=== PATIENT | female | born 1960 | race Caucasian/White ===

== ENCOUNTER 2020-01-27 01:43 | Inpatient (IN) | payer MEDICAID ==
[~2020-01-27] VITALS: Ht 152.4 cm; Wt 61.0 kg
[~2020-01-27 01:43] MED LIST: ALBU18HF2 IH; CALCIUM/VIT D PO; FLUT1AER PO; SPIIN IH
[2020-01-27] MEDS ORDERED: methylPREDNISolone sod succ 125mg/2ml vial IV ONE (01:50)
[2020-01-27] MEDS ORDERED: albuterol 2.5 MG/3 ML nebule CONTNEB PRN (01:50)
[2020-01-27] MEDS ORDERED: ondansetron/PF 4mg/2ml inj IV ONE (02:15)
[2020-01-27 02:26] LABS: BASOPHILS # (AUTO) 0.1 X10'3 (0-0.2); BASOPHILS % (AUTO) 0.5 % (0-1); EOSINOPHILS # (AUTO) 0.1 X10'3 (0-0.9); EOSINOPHILS % (AUTO) 0.8 % (0-6); HEMATOCRIT 38.6 % (35.0-45.0); HEMOGLOBIN 12.8 g/dl (12.0-16.0); LYMPHOCYTES # (AUTO) 2.7 X10'3 (1.1-4.8); LYMPHOCYTES % (AUTO) 21.6 % (21-51); MEAN CORPUSCULAR HEMOGLOBIN 29.5 PG (27.0-31.0); MEAN CORPUSCULAR HGB CONC 33.2 g/dL (33.0-36.5); MEAN CORPUSCULAR VOLUME 89.1 FL (78-98); MONOCYTES # (AUTO) 0.5 X10'3 (0-0.9); MONOCYTES % (AUTO) 4.4 % (2-12); NEUTROPHILS % (AUTO) 72.7 % (42-75); PLATELET COUNT 258 X10'3 (140-440); RED BLOOD COUNT 4.34 X10'6 (4.20-5.60); RED CELL DISTRIBUTION WIDTH 14.5 % (11.5-14.5); WHITE BLOOD COUNT 12.4 X10'3 (4.5-11.0)
[2020-01-27 02:34] LABS: PARTIAL THROMBOPLASTIN TIME 24 SECONDS (22-32)
[2020-01-27 02:42] LABS: ALANINE AMINOTRANSFERASE 39 U/L (12-78); ALBUMIN 3.9 G/DL (3.4-5.0); ALBUMIN/GLOBULIN RATIO 0.9 (1.1-1.5); ALKALINE PHOSPHATASE 71 IU/L (46-116); ANION GAP 5 (8-16); ASPARTATE AMINO TRANSFERASE 24 U/L (10-37); BILIRUBIN,TOTAL 0.3 MG/DL (0.1-1.0); BLOOD UREA NITROGEN 20 MG/DL (7-18); BUN/CREATININE RATIO 19.6 (6.6-38.0); CALCIUM 9.6 MG/DL (8.5-10.1); CHLORIDE 103 MMOL/L (99-107); CREATININE 1.02 MG/DL (0.40-0.90); GLUCOSE 130 MG/DL (70-104); POTASSIUM 3.4 MMOL/L (3.5-5.1); SODIUM 140 MMOL/L (135-145); TOTAL CARBON DIOXIDE 32.2 MMOL/L (24-32); TOTAL PROTEIN 8.2 G/DL (6.4-8.2); eGFR 55 ML/MIN
[2020-01-27] MEDS ORDERED: CefTRIAXone/D5W-Rocephin 1gm 50 ML IV ONE (02:50)
[2020-01-27] MEDS ORDERED: azithromycin/NS 500mg/250ml 250 ML IV ONE (02:50)
[2020-01-27 02:55] LABS: C-REACTIVE PROTEIN 0.17 MG/DL (0.0-0.5); LACTATE DEHYDROGENASE 187 U/L (81-234)
[2020-01-27 03:01] LABS: ABG BASE EXCESS 0.9 mmol/L (-2.0-2.0); ABG HCO3 26.6 mmol/L (22.0-26.0); ABG OXYGEN SATURATION 94.9 % (94-97); ABG PCO2 (T) 46.6 mmHg (32.0-45.0); ABG PO2 (T) 76.6 mmHg (75.0-100.0); ALLEN'S TEST POSITIVE; FCOHb 0.8 % (0.0-3.9); FMetHb 0.3 % (0.0-1.5); FO2Hb 93.9 % (94-97); TOTAL HEMOGLOBIN 13.2 G/dl (12.0-16.0)
[2020-01-27 03:23] LABS: FERRITIN 76 NG/ML (8-252)
[2020-01-27] MEDS ORDERED: ROSU20TA31 PO (03:23)
[2020-01-27] MEDS ORDERED: FLUT1BLS4 INH (03:23)
[2020-01-27] MEDS ORDERED: potassium CL 10mEq/100ml bag 100 ML IV PRN ×2 (04:10)
[2020-01-27] MEDS ORDERED: magnesium hydroxide 30ml (MOM) UD suspension PO PRN (04:10)
[2020-01-27] MEDS ORDERED: acetaminophen 325mg tablet PO PRN (04:10)
[2020-01-27] MEDS ORDERED: ondansetron/PF 4mg/2ml inj IV PRN (04:10)
[2020-01-27] MEDS ORDERED: mag hydrox/Alum hydrox/simeth 30ml oral suspension PO PRN (04:10)
[2020-01-27] MEDS ORDERED: potassium Cl 20 mEq SR tablet PO PRN (04:10)
[2020-01-27] MEDS ORDERED: LORazepam 2 mg/ml vial IV ONE (04:15)
[2020-01-27] MEDS: ipratropium/albuterol 3ml nebule NEB SCH ×4 (07:44→19:35)
[2020-01-27] MEDS: K and/or MAG REPLACEMENT MC SCH ×2 (07:54→19:52)
[2020-01-27 08:00] VITALS: BP 122/57
[2020-01-27] MEDS: methylPREDNISolone sod succ/PF 40mg inj. IV SCH ×2 (08:07→19:46)
[2020-01-27] MEDS: potassium Cl 20 mEq SR tablet PO PRN ×2 (08:07→19:45)
[2020-01-27] MEDS: heparin, porcine 5000 units/ml vial SQ SCH ×2 (08:08→19:45)
--- NOTE | 2020-01-27 08:52 | NUR ---
PT'S DAUGHTER MICHAEL PHONE NUMBER: [phone]
--- NOTE | 2020-01-27 09:52 | NUR ---
dr. nayak at bedside
--- NOTE | 2020-01-27 10:51 | NUR ---
SPOKE WITH DR. SHALONDA CHOW FOR PT TO GO TO SURGICAL FLOOR. NOT CARDIAC RELATED.
[2020-01-27 12:00] VITALS: BP 105/76
--- NOTE | 2020-01-27 13:59 | NUR ---
PAGER ID: [phone] MESSAGE: Ena Gotti#[phone]- Pt wants pain meds, she has a migraine. Please. Hollie [phone]
[2020-01-27] MEDS ORDERED: SUMAtriptan 25 MG tablet PO STA (15:09)
[2020-01-27 18:00] VITALS: BP 123/62
--- NOTE | 2020-01-27 18:51 | NUR ---
Problems reprioritized. Patient report given, questions answered & plan of care reviewed with Prudence RN.
--- NOTE | 2020-01-27 19:05 | NUR ---
Patient in room [facility]. I have received report from DENG GARCÍA and had the opportunity to ask questions and assume patient care.
[2020-01-27] MEDS: HYDROcodone/acetaminophen 5mg/325mg tablet PO PRN (19:46)
[2020-01-27] MEDS: atorvastatin 20mg tablet PO SCH (22:09)
[2020-01-27 22:35] LABS: URINE AMPHETAMINE SCREEN NEGATIVE (Neg); URINE BARBITUATE SCREEN NEGATIVE (Neg); URINE BENZODIAZEPINES SCREEN NEGATIVE (Neg); URINE CANNABINOID SCREEN NEGATIVE (Neg); URINE COCAINE SCREEN NEGATIVE (Neg); URINE METHADONE SCREEN NEGATIVE (Neg); URINE OPIATE SCREEN POSITIVE (Neg); URINE PHENCYCLIDINE SCREEN NEGATIVE (Neg)
[2020-01-28 00:25] VITALS: BP 92/50
[2020-01-28] MEDS: ipratropium/albuterol 3ml nebule NEB SCH ×6 (00:41→23:37)
[2020-01-28 05:25] LABS: BASOPHILS % (AUTO) 0.1 % (0-1); EOSINOPHILS % (AUTO) 0 % (0-6); HEMATOCRIT 33.3 % (35.0-45.0); HEMOGLOBIN 10.9 g/dl (12.0-16.0); LYMPHOCYTES # (AUTO) 1.7 X10'3 (1.1-4.8); LYMPHOCYTES % (AUTO) 7.4 % (21-51); MEAN CORPUSCULAR HEMOGLOBIN 29.2 PG (27.0-31.0); MEAN CORPUSCULAR HGB CONC 32.9 g/dL (33.0-36.5); MEAN CORPUSCULAR VOLUME 88.9 FL (78-98); MEAN PLATELET VOLUME 7.8 FL (7.4-10.4); MONOCYTES # (AUTO) 1.1 X10'3 (0-0.9); MONOCYTES % (AUTO) 4.9 % (2-12); NEUTROPHILS # (AUTO) 20.5 X10'3 (1.8-7.7); NEUTROPHILS % (AUTO) 87.6 % (42-75); PLATELET COUNT 236 X10'3 (140-440); RED BLOOD COUNT 3.74 X10'6 (4.20-5.60); RED CELL DISTRIBUTION WIDTH 14.8 % (11.5-14.5); WHITE BLOOD COUNT 23.4 X10'3 (4.5-11.0)
[2020-01-28 05:49] LABS: ALANINE AMINOTRANSFERASE 30 U/L (12-78); ALBUMIN 3.3 G/DL (3.4-5.0); ALBUMIN/GLOBULIN RATIO 0.8 (1.1-1.5); ALKALINE PHOSPHATASE 54 IU/L (46-116); ANION GAP 9 (8-16); ASPARTATE AMINO TRANSFERASE 17 U/L (10-37); BILIRUBIN,TOTAL 0.2 MG/DL (0.1-1.0); BLOOD UREA NITROGEN 18 MG/DL (7-18); BUN/CREATININE RATIO 23.1 (6.6-38.0); CALCIUM 9.4 MG/DL (8.5-10.1); CHLORIDE 103 MMOL/L (99-107); CREATININE 0.78 MG/DL (0.40-0.90); GLUCOSE 155 MG/DL (70-104); POTASSIUM 4.2 MMOL/L (3.5-5.1); SODIUM 138 MMOL/L (135-145); TOTAL PROTEIN 7.4 G/DL (6.4-8.2); eGFR 75 ML/MIN
--- NOTE | 2020-01-28 06:22 | NUR ---
Patient in room [facility]. I have received report from KARRIE GARCÍA and had the opportunity to ask questions and assume patient care.
[2020-01-28 07:21] VITALS: BP 169/56
[2020-01-28] MEDS: K and/or MAG REPLACEMENT MC SCH ×2 (08:00→20:00)
[2020-01-28] MEDS ORDERED: azithromycin 250mg tablet PO SCH (08:25)
[2020-01-28] MEDS ORDERED: CefTRIAXone/D5W-Rocephin 1gm 50 ML IV SCH (08:25)
[2020-01-28] MEDS: heparin, porcine 5000 units/ml vial SQ SCH ×2 (09:14→19:55)
[2020-01-28] MEDS: methylPREDNISolone sod succ/PF 40mg inj. IV SCH ×2 (09:14→19:57)
[2020-01-28] MEDS: HYDROcodone/acetaminophen 5mg/325mg tablet PO PRN ×3 (09:15→20:00)
--- NOTE | 2020-01-28 09:30 | NUR ---
Discussed use of IS with pt. PT refused IS stating "I don't have no lung power sweetie. That doesn't work for me. " Education on how the IS works given to pt, but pt. still refused IS and flutter.
[2020-01-28 11:45] VITALS: BP 131/60
--- NOTE | 2020-01-28 11:54 | NUR ---
called daughter to give update on care.
--- NOTE | 2020-01-28 13:08 | NUR ---
PAGER ID: [phone] MESSAGE: Ena DEE [id number] CHOKED ON A PIECE OF CHICKEN. LISA PERFORM. PT. OK PT. STATES IT HAPPENS "ALL THE TIME" AT HOME. RECOMMENDING NOT TO EAT CHICKEN AND ORDERING MINCED MOIST DIET. ST EVAL? KARRIE [id number]
[2020-01-28] MEDS ORDERED: levoFLOXACIN 750MG TABLET PO ONE (13:20)
[2020-01-28] MEDS: metroNIDAZOLE-Flagyl 500mg/NS 100 ML IV SCH ×2 (16:54→23:55)
--- NOTE | 2020-01-28 17:50 | NUR ---
Pt. requesting a breathing tx. Paged RT.
--- NOTE | 2020-01-28 18:10 | NUR ---
Patient in room [facility]. I have received report from Sade GARCÍA and had the opportunity to ask questions and assume patient care.
--- NOTE | 2020-01-28 18:19 | NUR ---
Gave report to Patrica GARCÍA.
[2020-01-28] MEDS: lactobacillus rhamnosus 10,000 MMU CELLS/CAPSULE PO SCH (19:59)
[2020-01-28 20:00] VITALS: BP 123/65
[2020-01-28] MEDS: atorvastatin 20mg tablet PO SCH (20:00)
[2020-01-29] VITALS: BP 135/67
[2020-01-29] MEDS: ipratropium/albuterol 3ml nebule NEB SCH ×6 (04:24→23:31)
[2020-01-29 05:19] LABS: BASOPHILS % (AUTO) 0 % (0-1); EOSINOPHILS % (AUTO) 0 % (0-6); HEMATOCRIT 34.9 % (35.0-45.0); HEMOGLOBIN 11.6 g/dl (12.0-16.0); LYMPHOCYTES # (AUTO) 2.1 X10'3 (1.1-4.8); LYMPHOCYTES % (AUTO) 9.6 % (21-51); MEAN CORPUSCULAR HEMOGLOBIN 29.8 PG (27.0-31.0); MEAN CORPUSCULAR HGB CONC 33.2 g/dL (33.0-36.5); MEAN CORPUSCULAR VOLUME 89.5 FL (78-98); MEAN PLATELET VOLUME 7.5 FL (7.4-10.4); MONOCYTES # (AUTO) 0.8 X10'3 (0-0.9); MONOCYTES % (AUTO) 3.8 % (2-12); NEUTROPHILS # (AUTO) 18.8 X10'3 (1.8-7.7); NEUTROPHILS % (AUTO) 86.6 % (42-75); PLATELET COUNT 294 X10'3 (140-440); RED BLOOD COUNT 3.89 X10'6 (4.20-5.60); RED CELL DISTRIBUTION WIDTH 14.6 % (11.5-14.5); WHITE BLOOD COUNT 21.7 X10'3 (4.5-11.0)
[2020-01-29 05:37] LABS: ALANINE AMINOTRANSFERASE 29 U/L (12-78); ALBUMIN 3.5 G/DL (3.4-5.0); ALBUMIN/GLOBULIN RATIO 0.8 (1.1-1.5); ALKALINE PHOSPHATASE 60 IU/L (46-116); ANION GAP 5 (8-16); ASPARTATE AMINO TRANSFERASE 13 U/L (10-37); BILIRUBIN,TOTAL 0.2 MG/DL (0.1-1.0); BLOOD UREA NITROGEN 19 MG/DL (7-18); BUN/CREATININE RATIO 22.4 (6.6-38.0); CALCIUM 9.5 MG/DL (8.5-10.1); CHLORIDE 102 MMOL/L (99-107); CREATININE 0.85 MG/DL (0.40-0.90); GLUCOSE 141 MG/DL (70-104); POTASSIUM 4.2 MMOL/L (3.5-5.1); SODIUM 138 MMOL/L (135-145); TOTAL CARBON DIOXIDE 30.8 MMOL/L (24-32); TOTAL PROTEIN 7.8 G/DL (6.4-8.2); eGFR 68 ML/MIN
--- NOTE | 2020-01-29 06:23 | NUR ---
Patient in room [facility]. I have received report from Patrica GARCÍA and had the opportunity to ask questions and assume patient care.
--- NOTE | 2020-01-29 06:24 | NUR ---
Problems reprioritized. Patient report given, questions answered & plan of care reviewed with Rosalind GARCÍA.
[2020-01-29 07:00] VITALS: BP 120/60
[2020-01-29] MEDS: K and/or MAG REPLACEMENT MC SCH ×2 (08:00→20:00)
[2020-01-29] MEDS: methylPREDNISolone sod succ/PF 40mg inj. IV SCH ×2 (09:37→20:59)
[2020-01-29] MEDS: metroNIDAZOLE-Flagyl 500mg/NS 100 ML IV SCH ×2 (09:38→17:54)
[2020-01-29] MEDS: heparin, porcine 5000 units/ml vial SQ SCH ×2 (09:38→21:03)
[2020-01-29] MEDS: lactobacillus rhamnosus 10,000 MMU CELLS/CAPSULE PO SCH ×2 (09:38→21:03)
[2020-01-29 12:02] VITALS: BP 124/79
[2020-01-29] MEDS: HYDROcodone/acetaminophen 5mg/325mg tablet PO PRN (14:11)
[2020-01-29] MEDS: levoFLOXACIN 750MG TABLET PO SCH (14:11)
[2020-01-29] MEDS: furosemide 20MG tablet PO SCH (15:08)
[2020-01-29 15:09] VITALS: BP 130/82
--- NOTE | 2020-01-29 18:00 | NUR ---
Patient in room [facility]. I have received report from Rosalind GARCÍA and had the opportunity to ask questions and assume patient care.
--- NOTE | 2020-01-29 18:41 | NUR ---
Problems reprioritized. Patient report given, questions answered & plan of care reviewed with Patrica GARCÍA.
[2020-01-29 20:00] VITALS: BP 123/68
[2020-01-29] MEDS: atorvastatin 20mg tablet PO SCH (21:04)
[2020-01-30] MEDS: metroNIDAZOLE-Flagyl 500mg/NS 100 ML IV SCH ×2 (00:23→08:37)
[2020-01-30 00:42] VITALS: BP 112/72
[2020-01-30] MEDS: ipratropium/albuterol 3ml nebule NEB SCH ×3 (04:01→12:22)
[2020-01-30 05:06] LABS: BASOPHILS % (AUTO) 0.1 % (0-1); EOSINOPHILS % (AUTO) 0 % (0-6); HEMOGLOBIN 12.1 g/dl (12.0-16.0); LYMPHOCYTES # (AUTO) 2.1 X10'3 (1.1-4.8); LYMPHOCYTES % (AUTO) 15.1 % (21-51); MEAN CORPUSCULAR HGB CONC 33.6 g/dL (33.0-36.5); MEAN CORPUSCULAR VOLUME 89.2 FL (78-98); MEAN PLATELET VOLUME 7.4 FL (7.4-10.4); MONOCYTES # (AUTO) 0.5 X10'3 (0-0.9); MONOCYTES % (AUTO) 3.6 % (2-12); NEUTROPHILS # (AUTO) 11.5 X10'3 (1.8-7.7); NEUTROPHILS % (AUTO) 81.2 % (42-75); PLATELET COUNT 284 X10'3 (140-440); RED BLOOD COUNT 4.03 X10'6 (4.20-5.60); RED CELL DISTRIBUTION WIDTH 14.8 % (11.5-14.5); WHITE BLOOD COUNT 14.1 X10'3 (4.5-11.0)
[2020-01-30 05:22] LABS: ALANINE AMINOTRANSFERASE 27 U/L (12-78); ALBUMIN 3.6 G/DL (3.4-5.0); ALBUMIN/GLOBULIN RATIO 0.8 (1.1-1.5); ALKALINE PHOSPHATASE 59 IU/L (46-116); ANION GAP 6 (8-16); ASPARTATE AMINO TRANSFERASE 12 U/L (10-37); BILIRUBIN,TOTAL 0.2 MG/DL (0.1-1.0); BLOOD UREA NITROGEN 21 MG/DL (7-18); BUN/CREATININE RATIO 24.7 (6.6-38.0); CALCIUM 9.4 MG/DL (8.5-10.1); CHLORIDE 104 MMOL/L (99-107); CREATININE 0.85 MG/DL (0.40-0.90); GLUCOSE 168 MG/DL (70-104); POTASSIUM 4.1 MMOL/L (3.5-5.1); SODIUM 141 MMOL/L (135-145); TOTAL CARBON DIOXIDE 30.6 MMOL/L (24-32); TOTAL PROTEIN 7.9 G/DL (6.4-8.2); eGFR 68 ML/MIN
--- NOTE | 2020-01-30 06:32 | NUR ---
Patient in room [facility]. I have received report from Patrica GARCÍA and had the opportunity to ask questions and assume patient care.
--- NOTE | 2020-01-30 06:36 | NUR ---
Problems reprioritized. Patient report given, questions answered & plan of care reviewed with Rosalind GARCÍA.
[2020-01-30 07:00] VITALS: BP 127/80
[2020-01-30 07:23] LABS: PLATELET ESTIMATE NORMAL; TOTAL CELLS COUNTED 100
[2020-01-30] MEDS: K and/or MAG REPLACEMENT MC SCH (08:00)
[2020-01-30] MEDS: lactobacillus rhamnosus 10,000 MMU CELLS/CAPSULE PO SCH (08:38)
[2020-01-30] MEDS: methylPREDNISolone sod succ/PF 40mg inj. IV SCH (08:38)
[2020-01-30] MEDS: furosemide 20MG tablet PO SCH (08:38)
[2020-01-30] MEDS: heparin, porcine 5000 units/ml vial SQ SCH (08:39)
[2020-01-30] MEDS ORDERED: FURO20TA4 PO (10:22)
[2020-01-30] MEDS ORDERED: LEVO750T46 PO (10:22)
[2020-01-30] MEDS ORDERED: LORA-269 PO (10:22)
[2020-01-30 11:00] VITALS: BP 131/66
[2020-01-30] MEDS: levoFLOXACIN 750MG TABLET PO SCH (12:07)
--- NOTE | 2020-01-30 13:48 | NUR ---
Patient received discharge instructions at an earlier time. Patient verbalized understanding of all instructions made. Peripheral IV catheter has been removed, tip intact. Patient's home medications stored in the pharmacy returned by the charge nurse Andreia to patient. Patient stated that her daughter will be the one to pick her up and will bring the home oxygen. Awaiting for Dr. Huffman to give me the written prescription for Ativan at this time.
--- NOTE | 2020-01-30 14:35 | NUR ---
Patient discharged home with her family. Written prescription for Ativan was given to patient
== END 2020-01-30 14:36 | disposition home health service (06) | DRG 140 ==
LOC: ER 01:43 → ED HOLD 04:10 → SUR 3N 11:06
PROVIDERS: ADMIT Internal Medicine; ATTEND Family Medicine
DX: J44.1 Chronic obstructive pulmonary disease with (acute) exacerbation (principal); F15.90 Other stimulant use, unspecified, uncomplicated; E87.6 Hypokalemia; I50.9 Heart failure, unspecified; J96.20 Acute and chronic respiratory failure, unspecified whether with hypoxia or hypercapnia; Z20.828 Contact with and (suspected) exposure to other viral communicable diseases; Z79.899 Other long term (current) drug therapy; Z82.5 Family history of asthma and other chronic lower respiratory diseases; Z99.81 Dependence on supplemental oxygen; Z88.0 Allergy status to penicillin; Z87.891 Personal history of nicotine dependence
CPT/HCPCS: 36415; 36600; 71045; 71250; 80053; 80305; 82728; 82803; 83605; 83615; 83880; 84145; 84484; 85007; 85018; 85025; 85384; 85610; 85730; 86140; 87040; 87081; 87635; 92508; 92616; 93005; 94640; 94760; 96374; 96375; 99285; A7015; C9803; G0378; J0456; J0696; J1644; J2060; J2405; J2920; J2930; J3490

== ENCOUNTER 2020-02-25 16:59 | Emergency (ER) | payer MEDICAID ==
[~2020-02-25] VITALS: Ht 154.9 cm; Wt 60.0 kg
[~2020-02-25 16:59] MED LIST changes: -FLUT1AER PO; +FLUT1BLS4 INH; +FURO20TA4 PO; +LEVO750T46 PO; +LORA-269 PO; +ROSU20TA31 PO
[2020-02-25] MEDS ORDERED: methylPREDNISolone sod succ 125mg/2ml vial IV ONE (17:35)
[2020-02-25 18:14] LABS: BASOPHILS % (AUTO) 0.5 % (0-1); EOSINOPHILS % (AUTO) 0 % (0-6); HEMATOCRIT 39.7 % (35.0-45.0); HEMOGLOBIN 13.3 g/dl (12.0-16.0); MEAN CORPUSCULAR HEMOGLOBIN 29.5 PG (27.0-31.0); MEAN CORPUSCULAR HGB CONC 33.6 g/dL (33.0-36.5); MEAN CORPUSCULAR VOLUME 87.8 FL (78-98); MEAN PLATELET VOLUME 7.2 FL (7.4-10.4); MONOCYTES # (AUTO) 0.4 X10'3 (0-0.9); MONOCYTES % (AUTO) 4.9 % (2-12); NEUTROPHILS # (AUTO) 6.1 X10'3 (1.8-7.7); NEUTROPHILS % (AUTO) 81.6 % (42-75); PLATELET COUNT 282 X10'3 (140-440); RED BLOOD COUNT 4.52 X10'6 (4.20-5.60); WHITE BLOOD COUNT 7.4 X10'3 (4.5-11.0)
[2020-02-25 18:29] LABS: ALANINE AMINOTRANSFERASE 28 U/L (12-78); ALBUMIN 3.9 G/DL (3.4-5.0); ALBUMIN/GLOBULIN RATIO 0.9 (1.1-1.5); ALKALINE PHOSPHATASE 68 IU/L (46-116); ANION GAP 7 (8-16); ASPARTATE AMINO TRANSFERASE 22 U/L (10-37); BILIRUBIN,TOTAL 0.4 MG/DL (0.1-1.0); BLOOD UREA NITROGEN 15 MG/DL (7-18); BUN/CREATININE RATIO 17.9 (6.6-38.0); CALCIUM 8.8 MG/DL (8.5-10.1); CHLORIDE 99 MMOL/L (99-107); CREATININE 0.84 MG/DL (0.40-0.90); GLUCOSE 105 MG/DL (70-104); POTASSIUM 3.4 MMOL/L (3.5-5.1); SODIUM 137 MMOL/L (135-145); TOTAL CARBON DIOXIDE 30.8 MMOL/L (24-32); TOTAL PROTEIN 8.4 G/DL (6.4-8.2); eGFR 69 ML/MIN
[2020-02-25 18:52] LABS: LIPASE 171 U/L (73-393)
[2020-02-25] MEDS ORDERED: normal saline 1000ML IV soln IVB ONE (18:55)
[2020-02-25] MEDS ORDERED: dicyclomine 10 MG capsule PO ONE (18:55)
[2020-02-25] MEDS ORDERED: mag hydrox/Alum hydrox/simeth 30ml oral suspension PO ONE (18:55)
[2020-02-25] MEDS ORDERED: ketorolac tromethamine 15mg/ml inj. IV ONE (18:55)
[2020-02-25] MEDS ORDERED: iohexol 300mg/ml 100ml inj. ONE (19:40)
[2020-02-25] MEDS ORDERED: morphine 4 MG/ML inj SYRINge IV ONE (20:30)
[2020-02-25 21:15] LABS: CLARITY,URINE CLEAR (Clear); COLOR,URINE YELLOW (Yellow); GLUCOSE, URINE NEGATIVE (Neg); KETONES,URINE NEGATIVE (Neg); LEUKOCYTE ESTERASE ,URINE NEGATIVE (Neg); NITRITES, URINE NEGATIVE (Neg); OCCULT BLOOD,URINE NEGATIVE (Neg); PH,URINE 5.5 (4.8-8.0); PROTEIN,URINE NEGATIVE (Neg); UA COLLECTION TYPE CLN CATCH MIDSTREAM; UROBILINOGEN,URINE 0.2 E.U/dL (0.2-1.0)
[2020-02-25] MEDS ORDERED: [UNRECOGNIZED DRUG - OTHER] IV ONE (21:40)
[2020-02-25] MEDS ORDERED: hydrocortisone sod succ/PF 100mg/2ml inj. IV PRN (21:50)
[2020-02-25] MEDS ORDERED: acetaminophen 325mg tablet PO PRN (21:50)
[2020-02-25] MEDS ORDERED: famotidine/PF 10 mg/ml inj IV PRN (21:50)
[2020-02-25] MEDS ORDERED: diphenhydrAMINE 50 mg/ml inj IV PRN (21:50)
[2020-02-25] MEDS ORDERED: albuterol 2.5 MG/3 ML nebule NEB PRN (21:50)
[2020-02-25] MEDS ORDERED: epiNEPHrine 1 mg/ml inj IM PRN (21:50)
[2020-02-26] MEDS ORDERED: HYDR-3965 PO (00:12)
[2020-02-26] MEDS ORDERED: ONDA4TAB6 PO (00:12)
[2020-02-26] MEDS ORDERED: DOCU100C40 PO (00:12)
[2020-02-26 01:41] VITALS: BP 99/64
== END 2020-02-26 01:44 | disposition home or self-care (01) ==
LOC: ER 17:00
DX: U07.1 COVID-19 (principal); K80.80 Other cholelithiasis without obstruction; J44.9 Chronic obstructive pulmonary disease, unspecified; F15.10 Other stimulant abuse, uncomplicated; Z98.51 Tubal ligation status; Z56.0 Unemployment, unspecified; Z88.0 Allergy status to penicillin; Z79.899 Other long term (current) drug therapy
CPT/HCPCS: 36415; 71045; 74177; 80053; 81003; 83605; 83690; 84145; 85025; 93005; 96361; 96365; 96366; 96375; 99285; J1885; J2270; J2930; J7030; J7050; Q9967

== ENCOUNTER 2020-04-22 10:21 | Inpatient (IN) | payer MEDICAID ==
[2020-04-18 13:06] LABS: BASOPHILS # (AUTO) 0.1 X10'3 (0-0.2); BASOPHILS % (AUTO) 0.8 % (0-1); EOSINOPHILS # (AUTO) 0.2 X10'3 (0-0.9); EOSINOPHILS % (AUTO) 2.4 % (0-6); LYMPHOCYTES # (AUTO) 2.3 X10'3 (1.1-4.8); MEAN CORPUSCULAR HEMOGLOBIN 28.6 PG (27.0-31.0); MEAN CORPUSCULAR HGB CONC 32.1 g/dL (33.0-36.5); MEAN CORPUSCULAR VOLUME 89.1 FL (78-98); MEAN PLATELET VOLUME 7.7 FL (7.4-10.4); MONOCYTES # (AUTO) 0.6 X10'3 (0-0.9); MONOCYTES % (AUTO) 8.6 % (2-12); NEUTROPHILS # (AUTO) 4.2 X10'3 (1.8-7.7); NEUTROPHILS % (AUTO) 57.2 % (42-75); PRE OP HEMATOCRIT 40.8 % (35.0-45.0); PRE OP HEMOGLOBIN 13.1 g/dL (12.0-16.0); PRE OP PLATELET COUNT 259 X10'3 (140-440); RED BLOOD COUNT 4.58 X10'6 (4.20-5.60); RED CELL DISTRIBUTION WIDTH 15.1 % (11.5-14.5)
[2020-04-18 13:13] LABS: CLARITY,URINE CLEAR (Clear); COLOR,URINE YELLOW (Yellow); GLUCOSE, URINE NEGATIVE (Neg); KETONES,URINE NEGATIVE (Neg); LEUKOCYTE ESTERASE ,URINE NEGATIVE (Neg); NITRITES, URINE NEGATIVE (Neg); OCCULT BLOOD,URINE NEGATIVE (Neg); PH,URINE 7.5 (4.8-8.0); PROTEIN,URINE NEGATIVE (Neg); UROBILINOGEN,URINE 0.2 E.U/dL (0.2-1.0)
[2020-04-18 13:14] LABS: UA COLLECTION TYPE CLN CATCH MIDSTREAM
[2020-04-18 13:21] LABS: ALBUMIN 4.1 G/DL (3.4-5.0); ALKALINE PHOSPHATASE 65 IU/L (46-116); BLOOD UREA NITROGEN 12 MG/DL (7-18); BUN/CREATININE RATIO 16.4 (6.6-38.0); CHLORIDE 103 MMOL/L (99-107); CREATININE 0.73 MG/DL (0.40-0.90); PRE OP ANION GAP 8 (8-16); PRE OP AST 39 U/L (10-37); PRE OP BILIRUB, TOTAL 0.4 MG/DL (0.0-1.0); PRE OP GLUCOSE 93 MG/DL (70-104); PRE OP POTASSIUM 3.6 MMOL/L (3.4-5.1); PRE OP SODIUM 141 MMOL/L (135-145); TOTAL CARBON DIOXIDE 30.5 MMOL/L (24-32); TOTAL PROTEIN 8.4 G/DL (6.4-8.2); eGFR 81 ML/MIN
[2020-04-18 13:25] LABS: PRE OP ALT 83 U/L (30-65)
[~2020-04-22] VITALS: Ht 152.4 cm; Wt 65.0 kg
[2020-04-22] VITALS (19 sets, daily range): BP systolic 93–150; BP diastolic 64–98
[~2020-04-22 10:21] MED LIST changes: +BUPIVAcaine/PF 2.5 mg/ml (0.25%) 30ml vial ONE; -FURO20TA4 PO; -LEVO750T46 PO; -LORA-269 PO; +OSEL75CA17 PO; -SPIIN IH; +albuterol 2.5 MG/3 ML nebule NEB ONE; +ceFAZolin 1000mg inj ONE; +clindamycin-Cleocin 900mg/D5W 50 ML IV ONE; +famotidine 20mg tablet PO ONE; +gentamicin inj 310 MG in normal saline 100ml IV soln 92.25 ML IV ONE; +ringers solution, lacted 1,000 ML IV SCH
[2020-04-22] MEDS ORDERED: fentaNYL/PF 50MCG/1 ML 2ML syringe ONE (10:59)
[2020-04-22] MEDS ORDERED: ondansetron/PF 4mg/2ml inj ONE (11:00)
[2020-04-22] MEDS ORDERED: labetalol 20mg/4ml (5mg/ml) syringe IV PRN (11:00)
[2020-04-22] MEDS ORDERED: propofol inj 20 ML IV ONE (11:00)
[2020-04-22] MEDS ORDERED: dexamethasone sod phosphate 4mg/ml inj. ONE (11:00)
[2020-04-22] MEDS ORDERED: morphine 2 MG/ML inj. syringe IV PRN (11:00)
[2020-04-22] MEDS ORDERED: hydrALAZINE 20mg/ml inj. IV PRN (11:00)
[2020-04-22] MEDS ORDERED: rocuronium 10mg/ml inj IV ONE (11:00)
[2020-04-22] MEDS ORDERED: midazolam 2 mg/2 ml injection ONE (11:00)
[2020-04-22] MEDS ORDERED: LIDOcaine 2% (20mg/ml) 5ml vial ONE (11:00)
[2020-04-22] MEDS ORDERED: ringers solution, lacted 1,000 ML IV SCH (11:00)
[2020-04-22] MEDS ORDERED: ondansetron/PF 4mg/2ml inj IV PRN ×2 (11:00→20:25)
[2020-04-22] MEDS ORDERED: fentaNYL/PF 50MCG/1 ML 2ML syringe IV PRN ×2 (11:00)
[2020-04-22] MEDS ORDERED: acetaminophen 1,000mg/100ml IV 100 ML IV ONE (11:54)
[2020-04-22] MEDS: potassium CL 20mEq in D5-1/2NS 1,000 ML IV SCH ×2 (12:45→21:11)
[2020-04-22] MEDS: morphine 4 MG/ML inj SYRINge IV PRN ×2 (13:06→13:42)
[2020-04-22] MEDS ORDERED: CALC1TAB41 PO (13:33)
--- NOTE | 2020-04-22 15:00 | NUR ---
REPORT TO FLOOR RN, TRANSFERRED TO ROOM IN STABLE CONDITION NO COMPLAINTS OF PAIN ON TRANSFER. ABLE TO AMBULATE FROM GURNEY TO BED WITH MINIMAL ASSISTANCE.
--- NOTE | 2020-04-22 18:02 | NUR ---
Problems reprioritized. Patient report given, questions answered & plan of care reviewed with Katelynn GARCÍA.
[2020-04-22] MEDS: HYDROmorphone inj. 0.5 MG/0.5 ML DISP.SYRIN IV PRN (23:18)
[2020-04-23 04:00] VITALS: BP 103/57
[2020-04-23] MEDS: HYDROmorphone inj. 0.5 MG/0.5 ML DISP.SYRIN IV PRN ×2 (05:34→09:21)
[2020-04-23 06:18] LABS: BASOPHILS % (AUTO) 0.2 % (0-1); EOSINOPHILS % (AUTO) 0.1 % (0-6); HEMATOCRIT 32.7 % (35.0-45.0); HEMOGLOBIN 11.3 g/dl (12.0-16.0); LYMPHOCYTES # (AUTO) 1.3 X10'3 (1.1-4.8); LYMPHOCYTES % (AUTO) 15.7 % (21-51); MEAN CORPUSCULAR HEMOGLOBIN 29.9 PG (27.0-31.0); MEAN CORPUSCULAR HGB CONC 34.5 g/dL (33.0-36.5); MEAN CORPUSCULAR VOLUME 86.7 FL (78-98); MEAN PLATELET VOLUME 7.7 FL (7.4-10.4); MONOCYTES # (AUTO) 0.7 X10'3 (0-0.9); MONOCYTES % (AUTO) 8.6 % (2-12); NEUTROPHILS # (AUTO) 6.2 X10'3 (1.8-7.7); NEUTROPHILS % (AUTO) 75.4 % (42-75); PLATELET COUNT 211 X10'3 (140-440); RED BLOOD COUNT 3.78 X10'6 (4.20-5.60); RED CELL DISTRIBUTION WIDTH 14.7 % (11.5-14.5); WHITE BLOOD COUNT 8.2 X10'3 (4.5-11.0)
--- NOTE | 2020-04-23 06:28 | NUR ---
Problems reprioritized. Patient report given, questions answered & plan of care reviewed with RICKY Soliman.
[2020-04-23] MEDS: potassium CL 20mEq in D5-1/2NS 1,000 ML IV SCH ×3 (06:44→20:43)
--- NOTE | 2020-04-23 06:53 | NUR ---
Patient in room [facility]. I have received report from RICKY Pace and had the opportunity to ask questions and assume patient care.
[2020-04-23 07:00] VITALS: BP 103/59
[2020-04-23] MEDS: gabapentin 400mg capsule PO SCH ×3 (09:20→20:43)
[2020-04-23] MEDS: ketorolac tromethamine 15mg/ml inj. IV PRN ×2 (10:57→18:33)
[2020-04-23 11:00] VITALS: BP 109/48
[2020-04-23] MEDS ORDERED: ketorolac tromethamine 15mg/ml inj. IV SCH (14:00)
[2020-04-23] MEDS ORDERED: albuterol 2.5 MG/3 ML nebule NEB PRN (16:40)
--- NOTE | 2020-04-23 18:43 | NUR ---
Problems reprioritized. Patient report given, questions answered & plan of care reviewed with RICKY FIELDS.
--- NOTE | 2020-04-23 18:44 | NUR ---
Patient in room [facility]. I have received report from RICKY Soliman and had the opportunity to ask questions and assume patient care.
[2020-04-23 20:00] VITALS: BP 101/58
[2020-04-23] MEDS: HYDROcodone/acetaminophen 10/325mg tab PO PRN (20:50)
[2020-04-23] MEDS ORDERED: atorvastatin 20mg tablet PO SCH (21:00)
[2020-04-24] VITALS: BP 127/67
--- NOTE | 2020-04-24 06:20 | NUR ---
Problems reprioritized. Patient report given, questions answered & plan of care reviewed with RICKY Soliman.
--- NOTE | 2020-04-24 06:33 | NUR ---
Patient in room [facility]. I have received report from RICKY Britt and had the opportunity to ask questions and assume patient care.
[2020-04-24 07:00] VITALS: BP 117/76
[2020-04-24] MEDS: gabapentin 400mg capsule PO SCH ×2 (07:08→13:58)
[2020-04-24] MEDS: HYDROcodone/acetaminophen 10/325mg tab PO PRN (07:09)
[2020-04-24 07:14] LABS: BASOPHILS % (AUTO) 0.5 % (0-1); EOSINOPHILS # (AUTO) 0.2 X10'3 (0-0.9); EOSINOPHILS % (AUTO) 3.5 % (0-6); HEMATOCRIT 33.1 % (35.0-45.0); LYMPHOCYTES # (AUTO) 2.4 X10'3 (1.1-4.8); MEAN CORPUSCULAR HEMOGLOBIN 29.4 PG (27.0-31.0); MEAN CORPUSCULAR HGB CONC 33.1 g/dL (33.0-36.5); MEAN PLATELET VOLUME 7.8 FL (7.4-10.4); MONOCYTES # (AUTO) 0.5 X10'3 (0-0.9); MONOCYTES % (AUTO) 8.2 % (2-12); NEUTROPHILS % (AUTO) 48.8 % (42-75); PLATELET COUNT 195 X10'3 (140-440); RED BLOOD COUNT 3.72 X10'6 (4.20-5.60); RED CELL DISTRIBUTION WIDTH 14.8 % (11.5-14.5); WHITE BLOOD COUNT 6.2 X10'3 (4.5-11.0)
[2020-04-24] MEDS ORDERED: calcium carbonate/vitamin D3 tablet PO SCH (08:00)
[2020-04-24] MEDS ORDERED: (Fluticasone/Umeclidin/Vilanter (Trelegy Ellipta 100-62.5-25) IH SCH (08:00)
--- NOTE | 2020-04-24 08:40 | NUR ---
Called to room by Iva SALTER that patient "is complaining of feeling weird." Went to assess patient and she is teary eyed and reports she has a what feels like pulsating pain in her left side of the head and "I just feel weird." Patient reports she does have hx of migraines but she does not have a headache at the moment, just the pulsating sensation in her left head. She also reports she is nauseated, she was dry heaving. She was given Ewing but she stated it was on an empty stomach. VSS 97.3, 139/70, 70, 18, 95%3LNC. Zofran administered. Neuro checks intact.
--- NOTE | 2020-04-24 08:47 | NUR ---
Patient reports after zofran she is feeling better and the pulsating head is resolving. Will continue to monitor.
--- NOTE | 2020-04-24 10:37 | NUR ---
Dr. Bautista in to see patient and is aware of patient c/o of nausea as well as the pulsating sensation in left head. Patient reports to Dr. Bautista that this has happened before and not new. No new orders. Will continue to monitor.
[2020-04-24] MEDS ORDERED: metoclopramide 5 mg/ml inj IV PRN (10:40)
[2020-04-24 11:49] VITALS: BP 126/60
--- NOTE | 2020-04-24 12:57 | NUR ---
Dr Bautista's office called to have pain medications called in by his medical illustrator per Dr. Kim. Addendum: 04/24/20 at 1258 by Janny Leiva RN Dr Bautista's office called to have pain medications called in by his medical illustrator per Dr. Bautista.
--- NOTE | 2020-04-24 15:08 | NUR ---
Patient alert and oriented with no complaints at this time. Discussed with patient discharge instructions with patient and patient states she does not have any questions at this time. Patient aware that her [place] has been called in to [facility] on [address]. Patient ready for dc and is waiting for her transport to arrive to dc.
--- NOTE | 2020-04-24 15:43 | NUR ---
Patient alert and oriented at time of dc with no complaints. Patient escorted out in wheelchair x1 staff. Patient dc'd with all personal belongings.
--- NOTE | 2020-04-24 15:45 | NUR ---
Patient had own portable O2 tank and was discharged with it as well.
[2020-04-27] MEDS ORDERED: oseltamivir phos 75mg capsule PO SCH (08:00)
== END 2020-04-24 16:01 | disposition home or self-care (01) | DRG 263 ==
LOC: PAS 10:21 → SUR 3N 12:41 → OBSVTOIN 12:41
PROVIDERS: ADMIT Surgery; ATTEND Surgery
PROC: 0FT44ZZ Resection of Gallbladder, Percutaneous Endoscopic Approach (ICD-10-PCS; principal; 2020-04-22 11:28)
DX: K80.20 Calculus of gallbladder without cholecystitis without obstruction (principal); J44.9 Chronic obstructive pulmonary disease, unspecified; Z86.16 Personal history of COVID-19; Z79.899 Other long term (current) drug therapy
CPT/HCPCS: 36415; 80053; 81003; 82948; 85025; 87081; A4215; A4618; A7000; G0378; J0131; J0690; J1100; J1170; J1580; J1885; J2001; J2250; J2270; J2405; J2704; J2765; J3010; J3480; J3490; J7120